=== PATIENT | female | born 1970 | race Caucasian/White ===

== ENCOUNTER 2020-12-21 16:38 | Emergency (ER) | payer MEDICAID ==
[2020-12-21] MEDS ORDERED: Sodium Chloride 0.9% 10 ML Syringe FLUSH PRN (18:09)
[2020-12-21] MEDS ORDERED: Ondansetron 4 MG/2 ML SDV IVPUSH ONE (18:09)
[2020-12-21] MEDS ORDERED: HYDROmorphone 0.5 MG/0.5 ML Syringe IVPUSH ONE (18:09)
[2020-12-21] MEDS ORDERED: Sodium Chloride 0.9% 1,000 ML IV ONE ×2 (18:09→19:42)
--- NOTE | 2020-12-21 18:15 | EDM.PDOC ---
ED HPI GENERAL MEDICAL PROBLEM - General Chief Complaint: General Stated Complaint: COVID SYMPTOMS Time Seen by Provider: 12/21/20 17:55 Source of Information: Reports: Patient History Limitations: Reports: No Limitations - History of Present Illness INITIAL COMMENTS - FREE TEXT/NARRATIVE: Aury is a 50-year-old female presenting to the ED with a 5-day history of fever, chills, headache, body aches, nausea, vomiting, diarrhea, shortness of breath and cough. Patient was exposed to multiple family members who have Covid or just recovering from Covid. Her daughter had Covid 2 weeks ago and just recovered. Her son has Covid now. Patient has not undergone any vaccination at this time. Patient is high risk because of hypertension, morbid obesity, and diabetes. She is already status post left BKA due to her complications related to diabetes. Not been able to eat or drink much in the last 5 days. She finally comes in because she is not able to tolerate the pain anymore. She is unsure of what her blood sugars are because she has not been checking them because she has not been eating. - Related Data Allergies Allergy/AdvReac Type Severity Reaction Status Date / Time No Known Allergies Allergy Verified 12/21/20 18:59 ED ROS GENERAL - Review of Systems Review Of Systems: See Below Constitutional: Reports: Fever, Chills, Weakness, Decreased Appetite Respiratory: Reports: Shortness of Breath, Cough Cardiovascular: Reports: Chest Pain Endocrine: Reports: Fatigue GI/Abdominal: Reports: Abdominal Pain, Diarrhea, Nausea, Vomiting : Reports: No Symptoms Musculoskeletal: Reports: Muscle Pain Skin: Reports: No Symptoms Neurological: Reports: Headache Psychiatric: Reports: Anxiety Hematologic/Lymphatic: Reports: No Symptoms Immunologic: Reports: No Symptoms ED EXAM, GENERAL - Physical Exam Exam: See Below Exam Limited By: No Limitations General Appearance: Alert, Moderate Distress Eye Exam: Bilateral Eye: EOMI, PERRL Throat/Mouth: Normal Voice, No Airway Compromise, Other (Very dry mucous membranes) Head: Atraumatic, Normocephalic Neck: Normal Inspection, Supple. No: Lymphadenopathy (R), Lymphadenopathy (L) Respiratory/Chest: No Respiratory Distress, Lungs Clear, Normal Breath Sounds Cardiovascular: Normal Peripheral Pulses, Regular Rate, Rhythm, No Murmur Peripheral Pulses: 2+: Radial (L), Radial (R), Posterior Tibial (R) GI/Abdominal: Normal Bowel Sounds, Soft, Tender (Diffusely tender), Abnormal Bowel Sounds (Diminished bowel sounds). No: Guarding, Rebound Back Exam: Normal Inspection Extremities: Other (Left BKA) Neurological: Alert, Oriented, Normal Cognition, No Motor/Sensory Deficits Psychiatric: Normal Affect, Normal Mood Skin Exam: Warm, Dry, Pallor Lymphatic: No Adenopathy Course - Vital Signs Last Recorded V/S: Last Vital Signs Temp 36.8 C 12/21/20 19:10 Pulse 90 12/21/20 19:10 Resp 18 12/21/20 19:10 BP 103/51 L 12/21/20 19:10 Pulse Ox 97 12/21/20 19:10 - Orders/Labs/Meds Orders: Active Orders 24 hr Category Date Time Status Chest 1V Frontal [CR] Stat Exams 12/21/20 18:13 Taken CULTURE BLOOD [BC] Urgent Lab 12/21/20 19:36 Ordered CULTURE BLOOD [BC] Urgent Lab 12/21/20 19:36 Ordered UA W/MICROSCOPIC [URIN] Stat Lab 12/21/20 18:09 Ordered Levofloxacin/Dextrose 5%-Water [Levaquin in D5W 750 MG/ Med 12/21/20 19:36 Active 150 ML] 750 mg Premix Bag 1 bag IV ONETIME Sodium Chloride 0.9% [Saline Flush] Med 12/21/20 18:09 Active 10 ml FLUSH ASDIRECTED PRN Vancomycin 1.5 gm Med 12/21/20 19:36 Active Sodium Chloride 0.9% [Normal Saline] 250 ml IV ONETIME dexAMETHasone [Decadron] Med 12/21/20 19:38 Once 6 mg IVPUSH ONETIME ONE Blood Culture x2 Reflex Set [OM.PC] Urgent Oth 12/21/20 19:36 Ordered Saline Lock Insert [OM.PC] Routine Oth 12/21/20 18:09 Ordered Medication Orders Dexamethasone (Dexamethasone 4 Mg/Ml Sdv) 6 mg IVPUSH ONETIME ONE Stop: 12/21/20 19:39 Levofloxacin/Dextrose 750 mg/ (Premix) 150 mls @ 100 mls/hr IV ONETIME ONE Stop: 12/21/20 21:05 Vancomycin HCl 1.5 gm/ Sodium (Chloride) 250 mls @ 150 mls/hr IV ONETIME ONE Stop: 04/10/21 21:15 Sodium Chloride (Sodium Chloride 0.9% 10 Ml Syringe) 10 ml FLUSH ASDIRECTED PRN PRN Reason: Keep Vein Open Last Admin: 12/21/20 18:26 Dose: 10 ml Documented by: BERRY Labs: Laboratory Tests 12/21/20 12/21/20 12/21/20 Range/Units 17:56 18:09 18:25 WBC 3.9 L (4.5-11.0) K/uL RBC 4.42 (3.30-5.50) M/uL Hgb 13.0 (12.0-15.0) g/dL Hct 37.8 (36.0-48.0) % MCV 86 (80-98) fL MCH 29 (27-31) pg MCHC 34 (32-36) % Plt Count 143 L (150-400) K/uL Neut % (Auto) 78 H (36-66) % Lymph % (Auto) 17 L (24-44) % Hyde % (Auto) 5 (2-6) % Eos % (Auto) 0 L (2-4) % Baso % (Auto) 1 (0-1) % D-Dimer, Quantitative (0.0-500.0) ng/mL ABG Hemoglobin 13.4 (12.0-16.0) g/dL ABG Oxyhemoglobin 49.5 % ABG Carboxyhemoglobin 4.5 H (0.0-1.6) % ABG Methemoglobin 0.7 % VBG pH 7.437 (7.350-7.450) VBG pCO2 34.3 mm/Hg VBG pO2 27.1 mm/Hg VBG HCO3 22.8 mmol/L VBG Total CO2 20.3 mmol/L VBG O2 Saturation 52.2 VBG O2 Content 9.3 %vol VBG Base Excess -0.4 mm/L O2 Delivery Device Room air Sodium (140-148) mmol/L Potassium (3.6-5.2) mmol/L Chloride (100-108) mmol/L Carbon Dioxide (21-32) mmol/L Anion Gap (5.0-14.0) mmol/L BUN (7-18) mg/dL Creatinine (0.6-1.0) mg/dL Est Cr Clr Drug Dosing mL/min Estimated GFR (MDRD) (>60) Glucose (74-106) mg/dL Lactic Acid (0.4-2.0) mmol/L Calcium (8.5-10.1) mg/dL Total Bilirubin (0.2-1.0) mg/dL AST (15-37) U/L ALT (12-78) U/L Alkaline Phosphatase (46-116) U/L C-Reactive Protein (0.0-0.3) mg/dL Total Protein (6.4-8.2) g/dL Albumin (3.4-5.0) g/dL Globulin (2.3-3.5) g/dL Albumin/Globulin Ratio (1.2-2.2) Procalcitonin ng/mL Ketones (NEGATIVE) Influenza Type A RNA Negative (NEGATIVE) RSV RNA (INAAT) Negative (NEGATIVE) Influenza Type B RNA Negative (NEGATIVE) SARS-CoV-2 RNA (KRAIG) Positive H (NEGATIVE) 12/21/20 12/21/20 12/21/20 Range/Units 18:25 18:25 18:25 WBC (4.5-11.0) K/uL RBC (3.30-5.50) M/uL Hgb (12.0-15.0) g/dL Hct (36.0-48.0) % MCV (80-98) fL MCH (27-31) pg MCHC (32-36) % Plt Count (150-400) K/uL Neut % (Auto) (36-66) % Lymph % (Auto) (24-44) % Hyde % (Auto) (2-6) % Eos % (Auto) (2-4) % Baso % (Auto) (0-1) % D-Dimer, Quantitative 2301.23 H (0.0-500.0) ng/mL ABG Hemoglobin (12.0-16.0) g/dL ABG Oxyhemoglobin % ABG Carboxyhemoglobin (0.0-1.6) % ABG Methemoglobin % VBG pH (7.350-7.450) VBG pCO2 mm/Hg VBG pO2 mm/Hg VBG HCO3 mmol/L VBG Total CO2 mmol/L VBG O2 Saturation VBG O2 Content %vol VBG Base Excess mm/L O2 Delivery Device Sodium 130 L (140-148) mmol/L Potassium 4.2 (3.6-5.2) mmol/L Chloride 93 L (100-108) mmol/L Carbon Dioxide 23 (21-32) mmol/L Anion Gap 18.2 H (5.0-14.0) mmol/L BUN 27 H (7-18) mg/dL Creatinine 1.5 H (0.6-1.0) mg/dL Est Cr Clr Drug Dosing 43.63 mL/min Estimated GFR (MDRD) 37 L (>60) Glucose 335 H (74-106) mg/dL Lactic Acid 1.6 (0.4-2.0) mmol/L Calcium 8.4 L (8.5-10.1) mg/dL Total Bilirubin 0.4 (0.2-1.0) mg/dL AST 28 (15-37) U/L ALT 20 (12-78) U/L Alkaline Phosphatase 105 (46-116) U/L C-Reactive Protein 17.48 H (0.0-0.3) mg/dL Total Protein 6.8 (6.4-8.2) g/dL Albumin 2.2 L (3.4-5.0) g/dL Globulin 4.6 H (2.3-3.5) g/dL Albumin/Globulin Ratio 0.5 L (1.2-2.2) Procalcitonin ng/mL Ketones (NEGATIVE) Influenza Type A RNA (NEGATIVE) RSV RNA (INAAT) (NEGATIVE) Influenza Type B RNA (NEGATIVE) SARS-CoV-2 RNA (KRAIG) (NEGATIVE) 12/21/20 12/21/20 Range/Units 18:25 18:25 WBC (4.5-11.0) K/uL RBC (3.30-5.50) M/uL Hgb (12.0-15.0) g/dL Hct (36.0-48.0) % MCV (80-98) fL MCH (27-31) pg MCHC (32-36) % Plt Count (150-400) K/uL Neut % (Auto) (36-66) % Lymph % (Auto) (24-44) % Hyde % (Auto) (2-6) % Eos % (Auto) (2-4) % Baso % (Auto) (0-1) % D-Dimer, Quantitative (0.0-500.0) ng/mL ABG Hemoglobin (12.0-16.0) g/dL ABG Oxyhemoglobin % ABG Carboxyhemoglobin (0.0-1.6) % ABG Methemoglobin % VBG pH (7.350-7.450) VBG pCO2 mm/Hg VBG pO2 mm/Hg VBG HCO3 mmol/L VBG Total CO2 mmol/L VBG O2 Saturation VBG O2 Content %vol VBG Base Excess mm/L O2 Delivery Device Sodium (140-148) mmol/L Potassium (3.6-5.2) mmol/L Chloride (100-108) mmol/L Carbon Dioxide (21-32) mmol/L Anion Gap (5.0-14.0) mmol/L BUN (7-18) mg/dL Creatinine (0.6-1.0) mg/dL Est Cr Clr Drug Dosing mL/min Estimated GFR (MDRD) (>60) Glucose (74-106) mg/dL Lactic Acid (0.4-2.0) mmol/L Calcium (8.5-10.1) mg/dL Total Bilirubin (0.2-1.0) mg/dL AST (15-37) U/L ALT (12-78) U/L Alkaline Phosphatase (46-116) U/L C-Reactive Protein (0.0-0.3) mg/dL Total Protein (6.4-8.2) g/dL Albumin (3.4-5.0) g/dL Globulin (2.3-3.5) g/dL Albumin/Globulin Ratio (1.2-2.2) Procalcitonin 0.18 ng/mL Ketones Negative (NEGATIVE) Influenza Type A RNA (NEGATIVE) RSV RNA (INAAT) (NEGATIVE) Influenza Type B RNA (NEGATIVE) SARS-CoV-2 RNA (KRAIG) (NEGATIVE) Meds: Medications Generic Name Dose Route Start Last Admin Trade Name Freq PRN Reason Stop Dose Admin Dexamethasone 6 mg 12/21/20 19:38 Dexamethasone 4 Mg/Ml Sdv IVPUSH 12/21/20 19:39 ONETIME ONE Levofloxacin/Dextrose 750 mg/ 150 mls @ 100 mls/hr 12/21/20 19:36 Premix IV 12/21/20 21:05 ONETIME ONE Vancomycin HCl 1.5 gm/ Sodium 250 mls @ 150 mls/hr 12/21/20 19:36 Chloride IV 12/21/20 21:15 ONETIME ONE Sodium Chloride 10 ml 12/21/20 18:09 12/21/20 18:26 Sodium Chloride 0.9% 10 Ml Syringe FLUSH 10 ml ASDIRECTED PRN Administration Keep Vein Open Discontinued Medications Generic Name Dose Route Start Last Admin Trade Name Millerq PRN Reason Stop Dose Admin Hydromorphone HCl 0.5 mg 12/21/20 18:09 12/21/20 18:25 Hydromorphone 0.5 Mg/0.5 Ml Syringe IVPUSH 12/21/20 18:10 0.5 mg ONETIME ONE Administration Sodium Chloride 1,000 mls @ 999 mls/hr 12/21/20 18:09 12/21/20 18:26 Normal Saline IV 12/21/20 19:09 999 mls/hr .BOLUS ONE Administration Ondansetron HCl 4 mg 12/21/20 18:09 12/21/20 18:25 Ondansetron 4 Mg/2 Ml Sdv IVPUSH 12/21/20 18:10 4 mg ONETIME ONE Administration - Radiology Interpretation Free Text/Narrative:: I reviewed the one view portable chest x-ray showing fluffy infiltrates in the right upper lobe and more consolidated infiltrate in the left upper lobe. - Re-Assessments/Exams Free Text/Narrative Re-Assessment/Exam: 12/21/20 19:38 I reviewed the labs and x-rays on Aury. Her CBC is unremarkable. Her comprehensive metabolic panel significant for a creatinine of 1.5 and a glucose of 334. Her D-dimer is elevated at 1500. Her C-reactive protein is 17.8. Her procalcitonin is 0.18. She is SARS-CoV-2 positive. Her chest x-ray shows a fluffy white upper lobe infiltrate and a more consolidated left upper lobe infiltrate consistent with COVID-19 pneumonia. Blood cultures have been obtained and antibiotics to be initiated with vancomycin 1.5 g IV and Levaquin 7 and 50 mg IV. The patient's ketone status is negative so it is unlikely that she is in DKA. She is continue to be aggressively hydrated after receiving a liter of normal saline a second liter has been initiated at wide open status. I have arranged for the patient to be admitted for further care given her high risk mortality and morbidity associated with COVID-19 including diabetes, hypertension, hyperlipidemia, and obesity. Patient was also given dexamethasone 6 mg IV push. She would be a candidate for Bamlamivimab as we are only 4 to 5 days into her course. It was all discussed with the patient and her daughter who are in agreement with the plan. Departure - Departure Time of Disposition: 19:29 Disposition: Admitted As Inpatient 66 Clinical Impression: COVID-19, Pneumonia, Hyperglycemia Acute kidney failure Qualifiers: Acute renal failure type: unspecified Qualified Code(s): N17.9 - Acute kidney failure, unspecified - Discharge Information Referrals: PCP,None [Primary Care Provider] - Forms: ED Department Discharge Sepsis Event Note (ED) - Focused Exam Vital Signs: Vital Signs Temp Pulse Resp BP Pulse Ox 12/21/20 19:10 36.8 C 90 18 103/51 L 97 12/21/20 18:08 36.8 C 90 18 103/51 L 97 - My Orders Last 24 Hours: My Active Orders 12/21/20 18:09 UA W/MICROSCOPIC [URIN] Stat Sodium Chloride 0.9% [Saline Flush] 10 ml FLUSH ASDIRECTED PRN Saline Lock Insert [OM.PC] Routine 12/21/20 18:13 Chest 1V Frontal [CR] Stat 12/21/20 19:36 CULTURE BLOOD [BC] Urgent CULTURE BLOOD [BC] Urgent Levofloxacin/Dextrose 5%-Water [Levaquin in D5W 750 MG/150 ML] 750 mg Premix Bag 1 bag IV ONETIME Vancomycin 1.5 gm Sodium Chloride 0.9% [Normal Saline] 250 ml IV ONETIME Blood Culture x2 Reflex Set [OM.PC] Urgent 12/21/20 19:38 dexAMETHasone [Decadron] 6 mg IVPUSH ONETIME ONE - Assessment/Plan Last 24 Hours: My Active Orders 12/21/20 18:09 UA W/MICROSCOPIC [URIN] Stat Sodium Chloride 0.9% [Saline Flush] 10 ml FLUSH ASDIRECTED PRN Saline Lock Insert [OM.PC] Routine 12/21/20 18:13 Chest 1V Frontal [CR] Stat 12/21/20 19:36 CULTURE BLOOD [BC] Urgent CULTURE BLOOD [BC] Urgent Levofloxacin/Dextrose 5%-Water [Levaquin in D5W 750 MG/150 ML] 750 mg Premix Bag 1 bag IV ONETIME Vancomycin 1.5 gm Sodium Chloride 0.9% [Normal Saline] 250 ml IV ONETIME Blood Culture x2 Reflex Set [OM.PC] Urgent 12/21/20 19:38 dexAMETHasone [Decadron] 6 mg IVPUSH ONETIME ONE
[2020-12-21 19:19] LABS: CORONAVIRUS COVID-19 NAA POSITIVE (NEGATIVE)
[2020-12-21] MEDS ORDERED: Levofloxacin/Dextrose 5%-Water 750 MG in Premix Bag 1 BAG IV ONE (19:36)
[2020-12-21] MEDS ORDERED: Dexamethasone 4 MG/ML SDV IVPUSH ONE (19:38)
[2020-12-21] MEDS ORDERED: Vancomycin 1 GM SDV ONE (19:48)
[2020-12-21] MEDS ORDERED: Sodium Chloride 0.9% 0 ML ONE (19:51)
[2020-12-21] MEDS ORDERED: LORazepam 2 MG/ML SDV IVPUSH ONE (20:04)
--- NOTE | 2020-12-21 20:40 | EDM.PDOC ---
ED HPI GENERAL MEDICAL PROBLEM - General Chief Complaint: General Stated Complaint: COVID SYMPTOMS Time Seen by Provider: 12/21/20 17:55 Source of Information: Reports: Patient History Limitations: Reports: No Limitations - History of Present Illness INITIAL COMMENTS - FREE TEXT/NARRATIVE: Aury is a 50-year-old female presenting to the ED with a 5-day history of fever, chills, headache, body aches, nausea, vomiting, diarrhea, shortness of breath and cough. Patient was exposed to multiple family members who have Covid or just recovering from Covid. Her daughter had Covid 2 weeks ago and just recovered. Her son has Covid now. Patient has not undergone any vaccination at this time. Patient is high risk because of hypertension, morbid obesity, and diabetes. She is already status post left BKA due to her complications related to diabetes. Not been able to eat or drink much in the last 5 days. She finally comes in because she is not able to tolerate the pain anymore. She is unsure of what her blood sugars are because she has not been checking them because she has not been eating. - Related Data Allergies Allergy/AdvReac Type Severity Reaction Status Date / Time No Known Allergies Allergy Verified 12/21/20 18:59 Past Medical History Genitourinary History: Reports: Diabetic Nephropathy Musculoskeletal History: Reports: Other (See Below) Other Musculoskeletal History: left leg amputation Endocrine/Metabolic History: Reports: Diabetes, Type II - Past Surgical History Cardiovascular Surgical History: Reports: Coronary Artery Stent Social & Family History - Tobacco Use Tobacco Use Status *Q: Current Every Day Tobacco User Years of Tobacco use: 35 Packs/Tins Daily: 1 ED ROS GENERAL - Review of Systems Review Of Systems: See Below ED EXAM, GENERAL - Physical Exam Exam: See Below Free Text/Narrative:: Aury is a 50-year-old female presenting to the ED with a 5-day history of fever, chills, headache, body aches, nausea, vomiting, diarrhea, shortness of breath and cough. Patient was exposed to multiple family members who have Covid or just recovering from Covid. Her daughter had Covid 2 weeks ago and just recovered. Her son has Covid now. Patient has not undergone any vaccination at this time. Patient is high risk because of hypertension, morbid obesity, and diabetes. She is already status post left BKA due to her complications related to diabetes. Not been able to eat or drink much in the last 5 days. She finally comes in because she is not able to tolerate the pain anymore. She is unsure of what her blood sugars are because she has not been checking them because she has not been eating. Exam Limited By: No Limitations General Appearance: Alert, Moderate Distress Throat/Mouth: Normal Voice, No Airway Compromise, Other (Very dry mucous membranes) Head: Atraumatic, Normocephalic Neck: Normal Inspection, Supple. No: Lymphadenopathy (R), Lymphadenopathy (L) Respiratory/Chest: No Respiratory Distress, Lungs Clear, Normal Breath Sounds Cardiovascular: Normal Peripheral Pulses, Regular Rate, Rhythm, No Murmur Peripheral Pulses: 2+: Radial (L), Radial (R), Posterior Tibial (R) GI/Abdominal: Normal Bowel Sounds, Soft, Tender (Diffusely tender), Abnormal Bowel Sounds (Diminished bowel sounds). No: Guarding, Rebound Back Exam: Normal Inspection Extremities: Other (Left BKA) Neurological: Alert, Oriented, Normal Cognition, No Motor/Sensory Deficits Psychiatric: Normal Affect, Normal Mood Skin Exam: Warm, Dry, Pallor Lymphatic: No Adenopathy Course - Vital Signs Last Recorded V/S: Last Vital Signs Temp 98.3 F 12/21/20 19:10 Pulse 90 12/21/20 19:10 Resp 18 12/21/20 19:10 BP 103/51 L 12/21/20 19:10 Pulse Ox 97 12/21/20 19:10 - Orders/Labs/Meds Orders: Active Orders 24 hr Category Date Time Status Chest 1V Frontal [CR] Stat Exams 12/21/20 18:13 Taken CULTURE BLOOD [BC] Urgent Lab 12/21/20 19:45 Received CULTURE BLOOD [BC] Urgent Lab 12/21/20 19:55 Received UA W/MICROSCOPIC [URIN] Stat Lab 12/21/20 18:09 Ordered Levofloxacin/Dextrose 5%-Water [Levaquin in D5W 750 MG/ Med 12/21/20 19:36 Active 150 ML] 750 mg Premix Bag 1 bag IV ONETIME Sodium Chloride 0.9% [Normal Saline] 1,000 ml Med 12/21/20 19:42 Active IV .BOLUS Sodium Chloride 0.9% [Saline Flush] Med 12/21/20 18:09 Active 10 ml FLUSH ASDIRECTED PRN Vancomycin 1.5 gm Med 12/21/20 19:36 Active Sodium Chloride 0.9% [Normal Saline] 250 ml IV ONETIME Blood Culture x2 Reflex Set [OM.PC] Urgent Oth 12/21/20 19:36 Ordered Saline Lock Insert [OM.PC] Routine Oth 12/21/20 18:09 Ordered Medication Orders Levofloxacin/Dextrose 750 mg/ (Premix) 150 mls @ 100 mls/hr IV ONETIME ONE Stop: 12/21/20 21:05 Vancomycin HCl 1.5 gm/ Sodium (Chloride) 250 mls @ 150 mls/hr IV ONETIME ONE Stop: 12/21/20 21:15 Sodium Chloride (Normal Saline) 1,000 mls @ 999 mls/hr IV .BOLUS ONE Stop: 12/21/20 20:42 Last Admin: 12/21/20 20:04 Dose: 999 mls/hr Documented by: LEW Sodium Chloride (Sodium Chloride 0.9% 10 Ml Syringe) 10 ml FLUSH ASDIRECTED PRN PRN Reason: Keep Vein Open Last Admin: 12/21/20 18:26 Dose: 10 ml Documented by: BERRY Labs: Laboratory Tests 12/21/20 12/21/20 12/21/20 Range/Units 17:56 18:09 18:25 WBC 3.9 L (4.5-11.0) K/uL RBC 4.42 (3.30-5.50) M/uL Hgb 13.0 (12.0-15.0) g/dL Hct 37.8 (36.0-48.0) % MCV 86 (80-98) fL MCH 29 (27-31) pg MCHC 34 (32-36) % Plt Count 143 L (150-400) K/uL Neut % (Auto) 78 H (36-66) % Lymph % (Auto) 17 L (24-44) % [place] % (Auto) 5 (2-6) % Eos % (Auto) 0 L (2-4) % Baso % (Auto) 1 (0-1) % D-Dimer, Quantitative (0.0-500.0) ng/mL ABG Hemoglobin 13.4 (12.0-16.0) g/dL ABG Oxyhemoglobin 49.5 % ABG Carboxyhemoglobin 4.5 H (0.0-1.6) % ABG Methemoglobin 0.7 % VBG pH 7.437 (7.350-7.450) VBG pCO2 34.3 mm/Hg VBG pO2 27.1 mm/Hg VBG HCO3 22.8 mmol/L VBG Total CO2 20.3 mmol/L VBG O2 Saturation 52.2 VBG O2 Content 9.3 %vol VBG Base Excess -0.4 mm/L O2 Delivery Device Room air Sodium (140-148) mmol/L Potassium (3.6-5.2) mmol/L Chloride (100-108) mmol/L Carbon Dioxide (21-32) mmol/L Anion Gap (5.0-14.0) mmol/L BUN (7-18) mg/dL Creatinine (0.6-1.0) mg/dL Est Cr Clr Drug Dosing mL/min Estimated GFR (MDRD) (>60) Glucose (74-106) mg/dL Lactic Acid (0.4-2.0) mmol/L Calcium (8.5-10.1) mg/dL Total Bilirubin (0.2-1.0) mg/dL AST (15-37) U/L ALT (12-78) U/L Alkaline Phosphatase (46-116) U/L C-Reactive Protein (0.0-0.3) mg/dL Total Protein (6.4-8.2) g/dL Albumin (3.4-5.0) g/dL Globulin (2.3-3.5) g/dL Albumin/Globulin Ratio (1.2-2.2) Procalcitonin ng/mL Ketones (NEGATIVE) Influenza Type A RNA Negative (NEGATIVE) RSV RNA (INAAT) Negative (NEGATIVE) Influenza Type B RNA Negative (NEGATIVE) SARS-CoV-2 RNA (KRAIG) Positive H (NEGATIVE) 12/21/20 12/21/20 12/21/20 Range/Units 18:25 18:25 18:25 WBC (4.5-11.0) K/uL RBC (3.30-5.50) M/uL Hgb (12.0-15.0) g/dL Hct (36.0-48.0) % MCV (80-98) fL MCH (27-31) pg MCHC (32-36) % Plt Count (150-400) K/uL Neut % (Auto) (36-66) % Lymph % (Auto) (24-44) % [place] % (Auto) (2-6) % Eos % (Auto) (2-4) % Baso % (Auto) (0-1) % D-Dimer, Quantitative 2301.23 H (0.0-500.0) ng/mL ABG Hemoglobin (12.0-16.0) g/dL ABG Oxyhemoglobin % ABG Carboxyhemoglobin (0.0-1.6) % ABG Methemoglobin % VBG pH (7.350-7.450) VBG pCO2 mm/Hg VBG pO2 mm/Hg VBG HCO3 mmol/L VBG Total CO2 mmol/L VBG O2 Saturation VBG O2 Content %vol VBG Base Excess mm/L O2 Delivery Device Sodium 130 L (140-148) mmol/L Potassium 4.2 (3.6-5.2) mmol/L Chloride 93 L (100-108) mmol/L Carbon Dioxide 23 (21-32) mmol/L Anion Gap 18.2 H (5.0-14.0) mmol/L BUN 27 H (7-18) mg/dL Creatinine 1.5 H (0.6-1.0) mg/dL Est Cr Clr Drug Dosing 43.63 mL/min Estimated GFR (MDRD) 37 L (>60) Glucose 335 H (74-106) mg/dL Lactic Acid 1.6 (0.4-2.0) mmol/L Calcium 8.4 L (8.5-10.1) mg/dL Total Bilirubin 0.4 (0.2-1.0) mg/dL AST 28 (15-37) U/L ALT 20 (12-78) U/L Alkaline Phosphatase 105 (46-116) U/L C-Reactive Protein 17.48 H (0.0-0.3) mg/dL Total Protein 6.8 (6.4-8.2) g/dL Albumin 2.2 L (3.4-5.0) g/dL Globulin 4.6 H (2.3-3.5) g/dL Albumin/Globulin Ratio 0.5 L (1.2-2.2) Procalcitonin ng/mL Ketones (NEGATIVE) Influenza Type A RNA (NEGATIVE) RSV RNA (INAAT) (NEGATIVE) Influenza Type B RNA (NEGATIVE) SARS-CoV-2 RNA (KRAIG) (NEGATIVE) 12/21/20 12/21/20 Range/Units 18:25 18:25 WBC (4.5-11.0) K/uL RBC (3.30-5.50) M/uL Hgb (12.0-15.0) g/dL Hct (36.0-48.0) % MCV (80-98) fL MCH (27-31) pg MCHC (32-36) % Plt Count (150-400) K/uL Neut % (Auto) (36-66) % Lymph % (Auto) (24-44) % [place] % (Auto) (2-6) % Eos % (Auto) (2-4) % Baso % (Auto) (0-1) % D-Dimer, Quantitative (0.0-500.0) ng/mL ABG Hemoglobin (12.0-16.0) g/dL ABG Oxyhemoglobin % ABG Carboxyhemoglobin (0.0-1.6) % ABG Methemoglobin % VBG pH (7.350-7.450) VBG pCO2 mm/Hg VBG pO2 mm/Hg VBG HCO3 mmol/L VBG Total CO2 mmol/L VBG O2 Saturation VBG O2 Content %vol VBG Base Excess mm/L O2 Delivery Device Sodium (140-148) mmol/L Potassium (3.6-5.2) mmol/L Chloride (100-108) mmol/L Carbon Dioxide (21-32) mmol/L Anion Gap (5.0-14.0) mmol/L BUN (7-18) mg/dL Creatinine (0.6-1.0) mg/dL Est Cr Clr Drug Dosing mL/min Estimated GFR (MDRD) (>60) Glucose (74-106) mg/dL Lactic Acid (0.4-2.0) mmol/L Calcium (8.5-10.1) mg/dL Total Bilirubin (0.2-1.0) mg/dL AST (15-37) U/L ALT (12-78) U/L Alkaline Phosphatase (46-116) U/L C-Reactive Protein (0.0-0.3) mg/dL Total Protein (6.4-8.2) g/dL Albumin (3.4-5.0) g/dL Globulin (2.3-3.5) g/dL Albumin/Globulin Ratio (1.2-2.2) Procalcitonin 0.18 ng/mL Ketones Negative (NEGATIVE) Influenza Type A RNA (NEGATIVE) RSV RNA (INAAT) (NEGATIVE) Influenza Type B RNA (NEGATIVE) SARS-CoV-2 RNA (KRAIG) (NEGATIVE) Meds: Medications Generic Name Dose Route Start Last Admin Trade Name Jael PRN Reason Stop Dose Admin Levofloxacin/Dextrose 750 mg/ 150 mls @ 100 mls/hr 12/21/20 19:36 Premix IV 12/21/20 21:05 ONETIME ONE Vancomycin HCl 1.5 gm/ Sodium 250 mls @ 150 mls/hr 12/21/20 19:36 Chloride IV 12/21/20 21:15 ONETIME ONE Sodium Chloride 1,000 mls @ 999 mls/hr 12/21/20 19:42 12/21/20 20:04 Normal Saline IV 12/21/20 20:42 999 mls/hr .BOLUS ONE Administration Sodium Chloride 10 ml 12/21/20 18:09 12/21/20 18:26 Sodium Chloride 0.9% 10 Ml Syringe FLUSH 10 ml ASDIRECTED PRN Administration Keep Vein Open Discontinued Medications Generic Name Dose Route Start Last Admin Trade Name Jael PRN Reason Stop Dose Admin Dexamethasone 6 mg 12/21/20 19:38 Dexamethasone 4 Mg/Ml Sdv IVPUSH 12/21/20 19:39 ONETIME ONE Hydromorphone HCl 0.5 mg 12/21/20 18:09 12/21/20 18:25 Hydromorphone 0.5 Mg/0.5 Ml Syringe IVPUSH 12/21/20 18:10 0.5 mg ONETIME ONE Administration Sodium Chloride 1,000 mls @ 999 mls/hr 12/21/20 18:09 12/21/20 18:26 Normal Saline IV 12/21/20 19:09 999 mls/hr .BOLUS ONE Administration Sodium Chloride Confirm 12/21/20 19:51 Normal Saline Administered 12/21/20 19:52 Dose 250 mls @ as directed .ROUTE .STK-MED ONE Lorazepam 1 mg 12/21/20 20:04 12/21/20 20:14 Lorazepam 2 Mg/Ml Sdv IVPUSH 12/21/20 20:05 1 mg ONETIME ONE Administration Ondansetron HCl 4 mg 12/21/20 18:09 12/21/20 18:25 Ondansetron 4 Mg/2 Ml Sdv IVPUSH 12/21/20 18:10 4 mg ONETIME ONE Administration Vancomycin HCl Confirm 12/21/20 19:48 Vancomycin 1 Gm Sdv Administered 12/21/20 19:49 Dose 2 gm .ROUTE .STK-MED ONE Departure - Departure Time of Disposition: 20:35 Disposition: Home, Self-Care 01 Clinical Impression: COVID-19, Pneumonia, Hyperglycemia Acute kidney failure Qualifiers: Acute renal failure type: unspecified Qualified Code(s): N17.9 - Acute kidney failure, unspecified - Discharge Information *PRESCRIPTION DRUG MONITORING PROGRAM REVIEWED*: Not Applicable Instructions: COVID-19 Vaccine Information, Hyperglycemia, [id number], COVID- 19 Frequently Asked Questions, Prone Position Therapy Referrals: PCP,None [Primary Care Provider] - Forms: ED Department Discharge Care Plan Goals: Covid 19 pneumonia Robitussin AC 10ml every 4 to 6 hours as needed for cough Zofran 4mg by mouth every 8 hours as needed for nausea Ativan 1 mg as directed for anxiety Tylenol as directed for pain or fever return to ER on Wednesday to start medication Return to ER for any increase shortness of breath, pain, fever, nausea, vomiting, or not improving. Sepsis Event Note (ED) - Evaluation Sepsis Screening Result: No Definite Risk - Focused Exam Vital Signs: Vital Signs Temp Pulse Resp BP Pulse Ox 12/21/20 19:10 98.3 F 90 18 103/51 L 97 12/21/20 18:08 98.3 F 90 18 103/51 L 97 - Problem List & Annotations (1) COVID-19 SNOMED Code(s): 594648944 Code(s): U07.1 - COVID-19 Status: Acute Priority: High Current Visit: Yes (2) Pneumonia SNOMED Code(s): 569806311 Code(s): J18.9 - PNEUMONIA, UNSPECIFIED ORGANISM Status: Acute Priority: High Current Visit: Yes (3) Hyperglycemia SNOMED Code(s): 32472873 Code(s): R73.9 - HYPERGLYCEMIA, UNSPECIFIED Status: Acute Priority: High Current Visit: Yes - Problem List Review Problem List Initiated/Reviewed/Updated: Yes - Assessment/Plan Plan: Covid 19 pneumonia Robitussin AC 10ml every 4 to 6 hours as needed for cough Zofran 4mg by mouth every 8 hours as needed for nausea Ativan 1 mg as directed for anxiety Tylenol as directed for pain or fever return to ER on Wednesday to start medication Return to ER for any increase shortness of breath, pain, fever, nausea, vomiting, or not improving. Diabetes high blood glucose -restart medication as directed by your Primary Care Provider -follow up in Clinic
--- NOTE | 2020-12-23 09:55 | CR ---
CHEST: Portable 12/21/2020 at 6:30 PM CLINICAL HISTORY:Cough, dyspnea,covid COMPARISON:None FINDINGS: Heart size and pulmonary vascularity are normal. There are bilateral perihilar pneumonic infiltrates. There are no effusions. Impression: Bilateral pneumonias
== END 2020-12-21 20:52 | disposition home or self-care (01) ==
LOC: JP.ED 16:38
DX: U07.1 COVID-19 (principal); J12.82 Pneumonia due to coronavirus disease 2019; N17.9 Acute kidney failure, unspecified; E11.21 Type 2 diabetes mellitus with diabetic nephropathy; I10 Essential (primary) hypertension; E66.01 Morbid (severe) obesity due to excess calories; Z72.0 Tobacco use
CPT/HCPCS: 0241U; 36415; 71045; 80053; 82009; 82803; 83605; 84145; 85025; 85379; 86140; 87040; 96374; 96375; 99285; J1170; J2060; J2405; J7030

== ENCOUNTER 2020-12-23 16:06 | Inpatient (IN) | payer MEDICAID ==
[2020-12-23] MEDS ORDERED: REMDESIVIR 200 MG in Sodium Chloride 0.9% 250 ML IV ONE (17:31)
[2020-12-23] MEDS ORDERED: Acetaminophen 325 MG Tab PO PRN (17:31)
[2020-12-23] MEDS ORDERED: Ketorolac 30 MG/ML SDV IVPUSH ONE (17:33)
[2020-12-23] MEDS ORDERED: LORazepam 2 MG/ML SDV IVPUSH ONE (17:34)
--- NOTE | 2020-12-23 17:35 | EDM.PDOC ---
ED HPI GENERAL MEDICAL PROBLEM - General Chief Complaint: Respiratory Problem Stated Complaint: COVID POSITIVE Time Seen by Provider: 12/23/20 17:31 Source of Information: Reports: Patient, Old Records, RN Notes Reviewed History Limitations: Reports: No Limitations - History of Present Illness INITIAL COMMENTS - FREE TEXT/NARRATIVE: 50-year-old female presents emergency department today with increasing shortness of breath. She has known history of Covid positive on 410 was evaluated at that time was not hypoxic was set up for monoclonal antibody therapy unfortunately when she presented for that she was found to be hypoxic - Related Data Allergies Allergy/AdvReac Type Severity Reaction Status Date / Time No Known Allergies Allergy Verified 12/23/20 17:17 Home Meds: Home Meds ALPRAZolam [Xanax] 0.25 mg PO TID PRN 12/22/20 [History] Clopidogrel [Plavix] 75 mg PO DAILY 12/22/20 [History] DULoxetine [Cymbalta] 90 mg PO DAILY 12/22/20 [History] Gabapentin [Neurontin] 900 mg PO TID 12/22/20 [History] Insulin Aspart [NovoLOG] 4 unit SUBCUT TID MDD 60 units 12/22/20 [History] Insulin Glarg,Human.Rec.Analog [Lantus Solostar] 42 unit SUBCUT DAILY 12/22/20 [History] Losartan [Cozaar] 50 mg PO DAILY 12/22/20 [History] Metoprolol Succinate 50 mg PO BEDTIME 12/22/20 [History] Metoprolol Succinate [Toprol Xl] 100 mg PO DAILY 12/22/20 [History] Nitroglycerin [Nitrostat] 0.4 mg SL Q5M PRN MDD 3 12/22/20 [History] Ondansetron [Zofran ODT] 4 mg PO Q8H PRN 12/22/20 [History] Pantoprazole [ProTONIX] 40 mg PO DAILY 12/22/20 [History] atorvaSTATin [Lipitor] 20 mg PO BEDTIME 12/22/20 [History] hydrOXYzine HCL [Atarax] 25 mg PO BEDTIME PRN 12/22/20 [History] metFORMIN [Glucophage] 500 mg PO BIDMEALS 12/22/20 [History] rOPINIRole [Requip] 2 mg PO BEDTIME 12/22/20 [History] traZODone 50 mg PO BEDTIME 12/22/20 [History] Past Medical History HEENT History: Reports: Impaired Vision Cardiovascular History: Reports: High Cholesterol, Hypertension Respiratory History: Reports: Sleep Apnea Other Respiratory History: cpap Gastrointestinal History: Reports: Chronic Diarrhea Genitourinary History: Reports: Diabetic Nephropathy 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: Musculoskeletal History: Reports: Other (See Below) Other Musculoskeletal History: left leg amputation Psychiatric History: Reports: Anxiety Endocrine/Metabolic History: Reports: Diabetes, Type II Hematologic History: Reports: Anticoagulation Therapy - Infectious Disease History Infectious Disease History: Reports: Chicken Pox, Novel Coronavirus - Past Surgical History Head Surgeries/Procedures: Reports: None HEENT Surgical History: Reports: None Cardiovascular Surgical History: Reports: Coronary Artery Stent Respiratory Surgical History: Reports: None GI Surgical History: Reports: Appendectomy, Cholecystectomy Female Surgical History: Reports: None, Oophorectomy Endocrine Surgical History: Reports: None Musculoskeletal Surgical History: Reports: None Dermatological Surgical History: Reports: None Social & Family History - Tobacco Use Tobacco Use Status *Q: Current Every Day Tobacco User Years of Tobacco use: 35 Packs/Tins Daily: 0.5 Second Hand Smoke Exposure: No - Caffeine Use Caffeine Use: Reports: Tea - Recreational Drug Use Recreational Drug Use: Yes Drug Use in Last 12 Months: Yes Recreational Drug Type: Reports: Marijuana/Hashish Recreational Drug Use Frequency: Daily ED ROS GENERAL - Review of Systems Review Of Systems: See Below Constitutional: Reports: No Symptoms Respiratory: Reports: Shortness of Breath Cardiovascular: Reports: Dyspnea on Exertion Musculoskeletal: Reports: Muscle Pain ED EXAM, GENERAL - Physical Exam Exam: See Below Exam Limited By: No Limitations General Appearance: Alert, Anxious Respiratory/Chest: No Respiratory Distress, Lungs Clear, Normal Breath Sounds, No Accessory Muscle Use, Chest Non-Tender Cardiovascular: Regular Rate, Rhythm, No Murmur GI/Abdominal: Soft, Non-Tender Course - Vital Signs Last Recorded V/S: Last Vital Signs Temp 97.4 F 12/23/20 17:20 Pulse 85 12/23/20 17:29 Resp 18 12/23/20 17:20 BP 129/66 12/23/20 17:20 Pulse Ox 91 L 12/23/20 17:29 - Orders/Labs/Meds Labs: Laboratory Tests 12/23/20 12/23/20 12/23/20 Range/Units 17:38 17:38 17:38 WBC 5.3 (4.5-11.0) K/uL RBC 4.24 (3.30-5.50) M/uL Hgb 12.3 (12.0-15.0) g/dL Hct 36.4 (36.0-48.0) % MCV 86 (80-98) fL MCH 29 (27-31) pg MCHC 34 (32-36) % Plt Count 266 (150-400) K/uL Neut % (Auto) 75 H (36-66) % Lymph % (Auto) 16 L (24-44) % [place] % (Auto) 9 H (2-6) % Eos % (Auto) 0 L (2-4) % Baso % (Auto) 1 (0-1) % Sodium 132 L (140-148) mmol/L Potassium 3.8 (3.6-5.2) mmol/L Chloride 95 L (100-108) mmol/L Carbon Dioxide 21 (21-32) mmol/L Anion Gap 19.8 H (5.0-14.0) mmol/L BUN 32 H (7-18) mg/dL Creatinine 1.7 H (0.6-1.0) mg/dL Est Cr Clr Drug Dosing 38.50 mL/min Estimated GFR (MDRD) 32 L (>60) Glucose 330 H (74-106) mg/dL Lactic Acid 4.2 H (0.4-2.0) mmol/L Calcium 8.7 (8.5-10.1) mg/dL Total Bilirubin (0.2-1.0) mg/dL Direct Bilirubin (0.0-0.2) mg/dL Indirect Bilirubin AST (15-37) U/L ALT (12-78) U/L Alkaline Phosphatase (46-116) U/L Lactate Dehydrogenase 527 H (82-234) U/L Troponin I (0.000-0.056) ng/mL C-Reactive Protein 11.25 H (0.0-0.3) mg/dL Total Protein (6.4-8.2) g/dL Albumin (3.4-5.0) g/dL Globulin (2.3-3.5) g/dL Albumin/Globulin Ratio (1.2-2.2) Procalcitonin ng/mL 12/23/20 12/23/20 12/23/20 Range/Units 17:38 17:38 17:38 WBC (4.5-11.0) K/uL RBC (3.30-5.50) M/uL Hgb (12.0-15.0) g/dL Hct (36.0-48.0) % MCV (80-98) fL MCH (27-31) pg MCHC (32-36) % Plt Count (150-400) K/uL Neut % (Auto) (36-66) % Lymph % (Auto) (24-44) % [place] % (Auto) (2-6) % Eos % (Auto) (2-4) % Baso % (Auto) (0-1) % Sodium (140-148) mmol/L Potassium (3.6-5.2) mmol/L Chloride (100-108) mmol/L Carbon Dioxide (21-32) mmol/L Anion Gap (5.0-14.0) mmol/L BUN (7-18) mg/dL Creatinine (0.6-1.0) mg/dL Est Cr Clr Drug Dosing mL/min Estimated GFR (MDRD) (>60) Glucose (74-106) mg/dL Lactic Acid (0.4-2.0) mmol/L Calcium (8.5-10.1) mg/dL Total Bilirubin 0.3 (0.2-1.0) mg/dL Direct Bilirubin 0.12 (0.0-0.2) mg/dL Indirect Bilirubin 0.18 AST 37 (15-37) U/L ALT 23 (12-78) U/L Alkaline Phosphatase 106 (46-116) U/L Lactate Dehydrogenase (82-234) U/L Troponin I < 0.017 (0.000-0.056) ng/mL C-Reactive Protein (0.0-0.3) mg/dL Total Protein 7.0 (6.4-8.2) g/dL Albumin 2.2 L (3.4-5.0) g/dL Globulin 4.8 H (2.3-3.5) g/dL Albumin/Globulin Ratio 0.5 L (1.2-2.2) Procalcitonin 0.07 ng/mL Meds: Medications Discontinued Medications Generic Name Dose Route Start Last Admin Trade Name Freq PRN Reason Stop Dose Admin Acetaminophen 650 mg 12/23/20 17:31 Acetaminophen 325 Mg Tab PO Q4H PRN Fever Greater Than 101 Dexamethasone 6 mg 12/23/20 17:45 12/23/20 17:53 Dexamethasone 4 Mg/Ml Sdv IVPUSH 01/01/21 09:01 6 mg DAILY SHANAE Administration Remdesivir 200 mg/ Sodium 250 mls @ 250 mls/hr 12/23/20 17:31 12/23/20 17:59 Chloride IV 12/23/20 17:32 250 mls/hr ONETIME ONE Administration Ketorolac Tromethamine 30 mg 12/23/20 17:33 12/23/20 17:51 Ketorolac 30 Mg/Ml Sdv IVPUSH 12/23/20 17:34 30 mg ONETIME ONE Administration Lorazepam 1 mg 12/23/20 17:34 12/23/20 17:49 Lorazepam 2 Mg/Ml Sdv IVPUSH 12/23/20 17:35 1 mg ONETIME ONE Administration Nicotine 14 mg 12/23/20 19:15 12/23/20 20:42 Nicotine 14 Mg/24 Hr Patch TRDERM Not Given DAILY SHANAE Nicotine Polacrilex 2 mg 12/23/20 19:06 Nicotine Polacrilex 2 Mg Gum CHEW Q1H PRN Other Departure - Departure Time of Disposition: 07:34 Disposition: Admitted As Inpatient 66 Condition: Fair Clinical Impression: COVID-19 - Discharge Information Sepsis Event Note (ED) - Evaluation Sepsis Screening Result: No Definite Risk - Assessment/Plan Plan: Assessment Acuity = acute Site and laterality = viral syndrome Etiology = COVID-19 Manifestations = hypoxic Location of injury = Home Lab values = pending Plan Dexamethasone remdesivir have been initiated in the emergency department no fluids provided, oxygen 2 L provided call discussed case with hospitalist on- call at [phone] kindly agreed to come evaluate the patient emergency department for admission This note was dictated using [employer] voice recognition software please call with any questions on syntax or grammar.
[2020-12-23] MEDS ORDERED: Dexamethasone 4 MG/ML SDV IVPUSH SCH (17:45)
--- NOTE | 2020-12-23 18:22 | PCM.HP.2 ---
H&P History of Present Illness - General Date of Service: 12/23/20 Admit Problem/Dx: Admission Diagnosis/Problem Admission Diagnosis/Problem Hypoxia Source of Information: Patient, Provider, RN Notes Reviewed History Limitations: Reports: No Limitations - History of Present Illness Initial Comments - Free Text/Narative: Ms. Garza is a 50-year-old woman who was admitted through the emergency department with weakness and hypoxia secondary to COVID-19 infection. She has not felt well over the past 6 days, few days ago she presented to the emergency department and tested positive for COVID-19. Over the last couple days has become more short of breath and also has had a cough that has been nonproductive. On evaluation today she is noted to have normal white blood cell count but was found to be hypoxic on room air. She does have known underlying type 2 diabetes mellitus. Chest x-ray has been obtained but because of issues with the PACS system I am unable to view it at this time. - Related Data Allergies/Adverse Reactions: Allergies Allergy/AdvReac Type Severity Reaction Status Date / Time No Known Allergies Allergy Verified 12/23/20 17:17 Home Medications: Home Meds ALPRAZolam [Xanax] 0.25 mg PO TID PRN 12/22/20 [History] Clopidogrel [Plavix] 75 mg PO DAILY 12/22/20 [History] DULoxetine [Cymbalta] 90 mg PO DAILY 12/22/20 [History] Gabapentin [Neurontin] 900 mg PO TID 12/22/20 [History] Insulin Aspart [NovoLOG] 4 unit SUBCUT TID MDD 60 units 12/22/20 [History] Insulin Glarg,Human.Rec.Analog [Lantus Solostar] 42 unit SUBCUT DAILY 12/22/20 [History] Losartan [Cozaar] 50 mg PO DAILY 12/22/20 [History] Metoprolol Succinate 50 mg PO BEDTIME 12/22/20 [History] Metoprolol Succinate [Toprol Xl] 100 mg PO DAILY 12/22/20 [History] Nitroglycerin [Nitrostat] 0.4 mg SL Q5M PRN MDD 3 12/22/20 [History] Ondansetron [Zofran ODT] 4 mg PO Q8H PRN 12/22/20 [History] Pantoprazole [ProTONIX] 40 mg PO DAILY 12/22/20 [History] atorvaSTATin [Lipitor] 20 mg PO BEDTIME 12/22/20 [History] hydrOXYzine HCL [Atarax] 25 mg PO BEDTIME PRN 12/22/20 [History] metFORMIN [Glucophage] 500 mg PO BIDMEALS 12/22/20 [History] rOPINIRole [Requip] 2 mg PO BEDTIME 12/22/20 [History] traZODone 50 mg PO BEDTIME 12/22/20 [History] Past Medical History HEENT History: Reports: Impaired Vision Cardiovascular History: Reports: High Cholesterol, Hypertension Respiratory History: Reports: Sleep Apnea Other Respiratory History: cpap Gastrointestinal History: Reports: Chronic Diarrhea Genitourinary History: Reports: Diabetic Nephropathy SAFETY ADVISOR History: Reports: Musculoskeletal History: Reports: Other (See Below) Other Musculoskeletal History: left leg amputation Psychiatric History: Reports: Anxiety Endocrine/Metabolic History: Reports: Diabetes, Type II Hematologic History: Reports: Anticoagulation Therapy - Infectious Disease History Infectious Disease History: Reports: Chicken Pox, Novel Coronavirus - Past Surgical History Head Surgeries/Procedures: Reports: None HEENT Surgical History: Reports: None Cardiovascular Surgical History: Reports: Coronary Artery Stent Respiratory Surgical History: Reports: None GI Surgical History: Reports: Appendectomy, Cholecystectomy Female Surgical History: Reports: None, Oophorectomy Endocrine Surgical History: Reports: None Musculoskeletal Surgical History: Reports: None Dermatological Surgical History: Reports: None Social & Family History - Tobacco Use Tobacco Use Status *Q: Current Every Day Tobacco User Years of Tobacco use: 35 Packs/Tins Daily: 0.5 Second Hand Smoke Exposure: No - Caffeine Use Caffeine Use: Reports: Tea - Recreational Drug Use Recreational Drug Use: Yes Drug Use in Last 12 Months: Yes Recreational Drug Type: Reports: Marijuana/Hashish Recreational Drug Use Frequency: Daily H&P Review of Systems - Review of Systems: Review Of Systems: See Below General: Reports: Malaise, Weakness, Fatigue. Denies: Fever, Chills HEENT: Reports: No Symptoms Pulmonary: Reports: Shortness of Breath, Cough. Denies: Wheezing, Pleuritic Chest Pain, Sputum, Hemoptysis Cardiovascular: Reports: Dyspnea on Exertion. Denies: Chest Pain, Palpitations, Orthopnea, PND, Edema, Lightheadedness Gastrointestinal: Reports: No Symptoms Genitourinary: Reports: No Symptoms Musculoskeletal: Reports: No Symptoms Skin: Reports: No Symptoms Psychiatric: Reports: No Symptoms Neurological: Reports: No Symptoms Hematologic/Lymphatic: Reports: No Symptoms Immunologic: Reports: No Symptoms Exam - Exam Exam: See Below - Vital Signs Vital Signs: Last Vital Signs Temp 97.4 F 12/23/20 17:20 Pulse 85 12/23/20 17:29 Resp 18 12/23/20 17:20 BP 129/66 12/23/20 17:20 Pulse Ox 91 L 12/23/20 17:29 Weight: 190 lb - Exam Quality Assessment: Supplemental Oxygen, DVT Prophylaxis General: Alert, Oriented, Cooperative, Moderate Distress HEENT: Conjunctiva Clear, Hearing Intact, Mucosa Moist & [place], Normal Nasal Septum, Posterior Pharynx Clear, Pupils Equal Neck: Supple, Trachea Midline, +2 Carotid Pulse wo Bruit Lungs: Clear to Auscultation, Normal Respiratory Effort, Decreased Breath Sounds Cardiovascular: Regular Rate, Regular Rhythm, Normal S1, Normal S2. No: S ystolic Murmur, Diastolic Murmur GI/Abdominal Exam: Soft, Non-Tender, No Organomegaly, No Distention Back Exam: Normal Inspection, Full Range of Motion Extremities: Non-Tender, No Pedal Edema Skin: Warm, Dry, Intact Neurological: Cranial Nerves Intact, Strength Equal Bilateral, Normal Speech, Normal Tone, Sensation Intact. No: Focal Deficit Neuro Extensive - Mental Status: Alert, Oriented x3, Normal Mood/Affect, Normal Cognition, Memory Intact - Patient Data Lab Results Last 24 hrs: Laboratory Results - last 24 hr 12/23/20 12/23/20 12/23/20 Range/Units 17:38 17:38 17:38 WBC 5.3 (4.5-11.0) K/uL RBC 4.24 (3.30-5.50) M/uL Hgb 12.3 (12.0-15.0) g/dL Hct 36.4 (36.0-48.0) % MCV 86 (80-98) fL MCH 29 (27-31) pg MCHC 34 (32-36) % Plt Count 266 (150-400) K/uL Neut % (Auto) 75 H (36-66) % Lymph % (Auto) 16 L (24-44) % [place] % (Auto) 9 H (2-6) % Eos % (Auto) 0 L (2-4) % Baso % (Auto) 1 (0-1) % Sodium 132 L (140-148) mmol/L Potassium 3.8 (3.6-5.2) mmol/L Chloride 95 L (100-108) mmol/L Carbon Dioxide 21 (21-32) mmol/L Anion Gap 19.8 H (5.0-14.0) mmol/L BUN 32 H (7-18) mg/dL Creatinine 1.7 H (0.6-1.0) mg/dL Est Cr Clr Drug Dosing 38.50 mL/min Estimated GFR (MDRD) 32 L (>60) Glucose 330 H (74-106) mg/dL Lactic Acid 4.2 H (0.4-2.0) mmol/L Calcium 8.7 (8.5-10.1) mg/dL Total Bilirubin (0.2-1.0) mg/dL Direct Bilirubin (0.0-0.2) mg/dL Indirect Bilirubin AST (15-37) U/L ALT (12-78) U/L Alkaline Phosphatase (46-116) U/L Lactate Dehydrogenase 527 H (82-234) U/L Troponin I (0.000-0.056) ng/mL C-Reactive Protein 11.25 H (0.0-0.3) mg/dL Total Protein (6.4-8.2) g/dL Albumin (3.4-5.0) g/dL Globulin (2.3-3.5) g/dL Albumin/Globulin Ratio (1.2-2.2) Procalcitonin ng/mL 12/23/20 12/23/20 12/23/20 Range/Units 17:38 17:38 17:38 WBC (4.5-11.0) K/uL RBC (3.30-5.50) M/uL Hgb (12.0-15.0) g/dL Hct (36.0-48.0) % MCV (80-98) fL MCH (27-31) pg MCHC (32-36) % Plt Count (150-400) K/uL Neut % (Auto) (36-66) % Lymph % (Auto) (24-44) % [place] % (Auto) (2-6) % Eos % (Auto) (2-4) % Baso % (Auto) (0-1) % Sodium (140-148) mmol/L Potassium (3.6-5.2) mmol/L Chloride (100-108) mmol/L Carbon Dioxide (21-32) mmol/L Anion Gap (5.0-14.0) mmol/L BUN (7-18) mg/dL Creatinine (0.6-1.0) mg/dL Est Cr Clr Drug Dosing mL/min Estimated GFR (MDRD) (>60) Glucose (74-106) mg/dL Lactic Acid (0.4-2.0) mmol/L Calcium (8.5-10.1) mg/dL Total Bilirubin 0.3 (0.2-1.0) mg/dL Direct Bilirubin 0.12 (0.0-0.2) mg/dL Indirect Bilirubin 0.18 AST 37 (15-37) U/L ALT 23 (12-78) U/L Alkaline Phosphatase 106 (46-116) U/L Lactate Dehydrogenase (82-234) U/L Troponin I < 0.017 (0.000-0.056) ng/mL C-Reactive Protein (0.0-0.3) mg/dL Total Protein 7.0 (6.4-8.2) g/dL Albumin 2.2 L (3.4-5.0) g/dL Globulin 4.8 H (2.3-3.5) g/dL Albumin/Globulin Ratio 0.5 L (1.2-2.2) Procalcitonin 0.07 ng/mL Result Diagrams: 12/23/20 17:38 12/23/20 17:38 Sepsis Event Note - Evaluation Sepsis Screening Result: No Definite Risk - Focused Exam Vital Signs: Vital Signs Temp Pulse Resp BP Pulse Ox 12/23/20 17:29 85 91 L 12/23/20 17:20 97.4 F 87 18 129/66 90 L 12/23/20 17:19 97.4 F 87 18 129/66 90 L *Q Meaningful Use (ADM) - VTE Risk Assess *Q Each Risk Factor Represents 1 Point: Age 41 - 59 years, Obesity ( BMI > 25 kg/m2), Serious lung disease including pneumonia Total Score 1 Point Risk Factors: 3 Each Risk Factor Represents 2 Points: None Total Score 2 Point Risk Factors: 0 Each Risk Factor Represents 3 Points: None Total Score 3 Point Risk Factors: 0 Each Risk Factor Represents 5 Points: None Total Score 5 Point Risk Factors: 0 Venous Thromboembolism Risk Factor Score *Q: 3 Problem List Initiated/Reviewed/Updated: Yes Orders Last 24hrs: Active Orders 24 hr Category Date Time Status Patient Status Manage Transfer [TRANSFER] Routine ADT 12/23/20 18:12 Active Nurse Communication: Isolation [RC] ASDIRECTED Care 12/23/20 17:32 Active Chest 1V Frontal [CR] Stat Exams 12/23/20 17:32 Taken HEPATIC FUNCTION PANEL,HFP [CHEM] DAILY Lab 12/24/20 17:45 Ordered HEPATIC FUNCTION PANEL,HFP [CHEM] DAILY Lab 12/25/20 17:45 Ordered HEPATIC FUNCTION PANEL,HFP [CHEM] DAILY Lab 12/26/20 17:45 Ordered HEPATIC FUNCTION PANEL,HFP [CHEM] DAILY Lab 12/27/20 17:45 Ordered Acetaminophen [TylenoL] Med 12/23/20 17:31 Active 650 mg PO Q4H PRN dexAMETHasone [Decadron] Med 12/23/20 17:45 Active 6 mg IVPUSH DAILY Isolation [COMM] Stat Oth 12/23/20 17:31 Ordered Resuscitation Status Routine Resus Stat 12/23/20 18:16 Ordered Medication Orders Acetaminophen (Acetaminophen 325 Mg Tab) 650 mg PO Q4H PRN PRN Reason: Fever Greater Than 101 Dexamethasone (Dexamethasone 4 Mg/Ml Sdv) 6 mg IVPUSH DAILY SHANAE Stop: 01/01/21 09:01 Last Admin: 12/23/20 17:53 Dose: 6 mg Documented by: NENA Assessment/Plan Comment:: ASSESSMENT AND PLAN COVID-19 INFECTION WITH HYPOXIA-symptoms present for the past 6 days. Now she has become more short of breath over the last 48 hours. On evaluation in the emergency department was noted to be hypoxic on room air. -Limit IV fluids -Follow-up labs in a.m. -Decadron 6 mg IV every 24 hours -Remdesivir 200 mg IV given in the emergency department, then 100 mg IV daily for the next 4 days -Supplemental oxygen as needed TYPE 2 DIABETES MELLITUS -Hold Metformin -Continue outpatient medications other than Metformin -4 times daily glucometers -Sliding scale Humalog MAINTENANCE ISSUES -DVT prophylaxis; enoxaparin 40 mg subcu every 12 hours -GI prophylaxis; not indicated -Jordan catheter; not indicated -Nutrition; consistent carbohydrate diet -Nicotine dependence; nicotine patch and nicotine gum CODE STATUS-FULL CODE ADMISSION STATUS-patient will be admitted to inpatient status, expect at least a 2 night hospital stay for evaluation and management of problems as outlined storm curtis. At the time of this admission I do not reasonably expected evaluation and management of this problem will require more than a 96 hour hospital stay. DISPOSITION-anticipate discharge to home after the hospital stay. - Mortality Measure Prognosis:: Good
[2020-12-23] MEDS ORDERED: Nicotine Polacrilex 2 MG Gum CHEW PRN (19:06)
[2020-12-23] MEDS ORDERED: Nicotine 14 MG/24 Hr Patch TRDERM SCH (19:15)
--- NOTE | 2020-12-24 08:37 | PCM.DCSUM1 ---
Discharge Summary - Hospital Course Brief History: Ms. Garza is a 50-year-old woman who was admitted through the emergency department with hypoxia and patchy pulmonary infiltrates secondary to COVID-19. - Discharge Data Discharge Date: 12/23/20 Discharge Disposition: Against Medical Advice 07 Condition: Stable - Referral to Home Health Primary Care Physician: PCP None - Discharge Diagnosis/Problem(s) (1) Hypoxia SNOMED Code(s): 903651545 ICD Code: R09.02 - HYPOXEMIA Status: Acute (2) COVID-19 SNOMED Code(s): 263875658 ICD Code: U07.1 - COVID-19 Status: Acute Priority: High - Patient Summary/Data Hospital Course: Ms. Garza is a 50-year-old woman who was admitted through the emergency department with weakness and hypoxia secondary to COVID-19 infection. She has not felt well over the past 6 days, few days ago she presented to the emergency department and tested positive for COVID-19. Over the last couple days has become more short of breath and also has had a cough that has been nonproductive. On evaluation today she is noted to have normal white blood cell count but was found to be hypoxic on room air. She does have known underlying type 2 diabetes mellitus. Chest x-ray showed patchy bilateral pulmonary infiltrates consistent with COVID-19. She was started on therapy with remdesivir and IV Decadron while in the emergency department. She was admitted to the Covid unit and supplemental oxygen was used to maintain adequate oxygenation. Within a few hours of admission she decided not to continue the hospitalization and did leave AGAINST MEDICAL ADVICE. - Discharge Plan Home Medications: Home Meds ALPRAZolam [Xanax] 0.25 mg PO TID PRN 12/22/20 [History] Clopidogrel [Plavix] 75 mg PO DAILY 12/22/20 [History] DULoxetine [Cymbalta] 90 mg PO DAILY 12/22/20 [History] Gabapentin [Neurontin] 900 mg PO TID 12/22/20 [History] Insulin Aspart [NovoLOG] 4 unit SUBCUT TID MDD 60 units 12/22/20 [History] Insulin Glarg,Human.Rec.Analog [Lantus Solostar] 42 unit SUBCUT DAILY 12/22/20 [History] Losartan [Cozaar] 50 mg PO DAILY 12/22/20 [History] Metoprolol Succinate 50 mg PO BEDTIME 12/22/20 [History] Metoprolol Succinate [Toprol Xl] 100 mg PO DAILY 12/22/20 [History] Nitroglycerin [Nitrostat] 0.4 mg SL Q5M PRN MDD 3 12/22/20 [History] Ondansetron [Zofran ODT] 4 mg PO Q8H PRN 12/22/20 [History] Pantoprazole [ProTONIX] 40 mg PO DAILY 12/22/20 [History] atorvaSTATin [Lipitor] 20 mg PO BEDTIME 12/22/20 [History] hydrOXYzine HCL [Atarax] 25 mg PO BEDTIME PRN 12/22/20 [History] metFORMIN [Glucophage] 500 mg PO BIDMEALS 12/22/20 [History] rOPINIRole [Requip] 2 mg PO BEDTIME 12/22/20 [History] traZODone 50 mg PO BEDTIME 12/22/20 [History] Referrals: PCP,None [Primary Care Provider] - - Discharge Summary/Plan Comment DC Time >30 min.: No - Patient Data Vitals - Most Recent: Last Vital Signs Temp 97.4 F 12/23/20 17:20 Pulse 85 12/23/20 17:29 Resp 18 12/23/20 17:20 BP 129/66 12/23/20 17:20 Pulse Ox 91 L 12/23/20 17:29 Weight - Most Recent: 190 lb I&O - Last 24 hours: Intake & Output 12/23/20 12/24/20 12/24/20 22:59 06:59 14:59 Intake Total 200 Balance 200 Lab Results - Last 24 hrs: Laboratory Results - last 24 hr 12/23/20 12/23/20 12/23/20 Range/Units 17:38 17:38 17:38 WBC 5.3 (4.5-11.0) K/uL RBC 4.24 (3.30-5.50) M/uL Hgb 12.3 (12.0-15.0) g/dL Hct 36.4 (36.0-48.0) % MCV 86 (80-98) fL MCH 29 (27-31) pg MCHC 34 (32-36) % Plt Count 266 (150-400) K/uL Neut % (Auto) 75 H (36-66) % Lymph % (Auto) 16 L (24-44) % [place] % (Auto) 9 H (2-6) % Eos % (Auto) 0 L (2-4) % Baso % (Auto) 1 (0-1) % Sodium 132 L (140-148) mmol/L Potassium 3.8 (3.6-5.2) mmol/L Chloride 95 L (100-108) mmol/L Carbon Dioxide 21 (21-32) mmol/L Anion Gap 19.8 H (5.0-14.0) mmol/L BUN 32 H (7-18) mg/dL Creatinine 1.7 H (0.6-1.0) mg/dL Est Cr Clr Drug Dosing 38.50 mL/min Estimated GFR (MDRD) 32 L (>60) Glucose 330 H (74-106) mg/dL Lactic Acid 4.2 H (0.4-2.0) mmol/L Calcium 8.7 (8.5-10.1) mg/dL Total Bilirubin (0.2-1.0) mg/dL Direct Bilirubin (0.0-0.2) mg/dL Indirect Bilirubin AST (15-37) U/L ALT (12-78) U/L Alkaline Phosphatase (46-116) U/L Lactate Dehydrogenase 527 H (82-234) U/L Troponin I (0.000-0.056) ng/mL C-Reactive Protein 11.25 H (0.0-0.3) mg/dL Total Protein (6.4-8.2) g/dL Albumin (3.4-5.0) g/dL Globulin (2.3-3.5) g/dL Albumin/Globulin Ratio (1.2-2.2) Procalcitonin ng/mL 12/23/20 12/23/20 12/23/20 Range/Units 17:38 17:38 17:38 WBC (4.5-11.0) K/uL RBC (3.30-5.50) M/uL Hgb (12.0-15.0) g/dL Hct (36.0-48.0) % MCV (80-98) fL MCH (27-31) pg MCHC (32-36) % Plt Count (150-400) K/uL Neut % (Auto) (36-66) % Lymph % (Auto) (24-44) % [place] % (Auto) (2-6) % Eos % (Auto) (2-4) % Baso % (Auto) (0-1) % Sodium (140-148) mmol/L Potassium (3.6-5.2) mmol/L Chloride (100-108) mmol/L Carbon Dioxide (21-32) mmol/L Anion Gap (5.0-14.0) mmol/L BUN (7-18) mg/dL Creatinine (0.6-1.0) mg/dL Est Cr Clr Drug Dosing mL/min Estimated GFR (MDRD) (>60) Glucose (74-106) mg/dL Lactic Acid (0.4-2.0) mmol/L Calcium (8.5-10.1) mg/dL Total Bilirubin 0.3 (0.2-1.0) mg/dL Direct Bilirubin 0.12 (0.0-0.2) mg/dL Indirect Bilirubin 0.18 AST 37 (15-37) U/L ALT 23 (12-78) U/L Alkaline Phosphatase 106 (46-116) U/L Lactate Dehydrogenase (82-234) U/L Troponin I < 0.017 (0.000-0.056) ng/mL C-Reactive Protein (0.0-0.3) mg/dL Total Protein 7.0 (6.4-8.2) g/dL Albumin 2.2 L (3.4-5.0) g/dL Globulin 4.8 H (2.3-3.5) g/dL Albumin/Globulin Ratio 0.5 L (1.2-2.2) Procalcitonin 0.07 ng/mL Med Orders - Current: Current Medications Discontinued Medications Acetaminophen (Acetaminophen 325 Mg Tab) 650 mg PO Q4H PRN PRN Reason: Fever Greater Than 101 Dexamethasone (Dexamethasone 4 Mg/Ml Sdv) 6 mg IVPUSH DAILY SHANAE Stop: 01/01/21 09:01 Last Admin: 12/23/20 17:53 Dose: 6 mg Documented by: Remdesivir 200 mg/ Sodium (Chloride) 250 mls @ 250 mls/hr IV ONETIME ONE Stop: 12/23/20 17:32 Last Admin: 12/23/20 17:59 Dose: 250 mls/hr Documented by: Ketorolac Tromethamine (Ketorolac 30 Mg/Ml Sdv) 30 mg IVPUSH ONETIME ONE Stop: 12/23/20 17:34 Last Admin: 12/23/20 17:51 Dose: 30 mg Documented by: Lorazepam (Lorazepam 2 Mg/Ml Sdv) 1 mg IVPUSH ONETIME ONE Stop: 12/23/20 17:35 Last Admin: 12/23/20 17:49 Dose: 1 mg Documented by: Nicotine (Nicotine 14 Mg/24 Hr Patch) 14 mg TRDERM DAILY SHANAE Last Admin: 12/23/20 20:42 Dose: Not Given Documented by: Nicotine Polacrilex (Nicotine Polacrilex 2 Mg Gum) 2 mg CHEW Q1H PRN PRN Reason: Other - Exam General: Reports: Other (Patient left AMA)
--- NOTE | 2020-12-24 09:23 | CR ---
CHEST: Portable 12/23/2020 CLINICAL HISTORY:Respiratory failure COMPARISON:12/21/2020 FINDINGS: Diffuse bilateral predominantly perihilar pulmonary infiltrates have increased since prior study. No effusion is seen Impression: Increasing bilateral pneumonic infiltrates
== END 2020-12-23 21:15 | disposition left against medical advice (07) | DRG 177 ==
LOC: JP.ED 16:06 → JP.2SS 18:12
PROVIDERS: ADMIT Hospitalist; ATTEND Hospitalist
PROC: 8E0ZXY6 Isolation (ICD-10-PCS; principal; 2020-12-23)
PROC: XW033E5 Introduction of Remdesivir Anti-infective into Peripheral Vein, Percutaneous Approach, New Technology Group 5 (ICD-10-PCS; principal; 2020-12-23)
DX: U07.1 COVID-19 (principal); J12.82 Pneumonia due to coronavirus disease 2019; H54.7 Unspecified visual loss; E78.00 Pure hypercholesterolemia, unspecified; I10 Essential (primary) hypertension; G47.30 Sleep apnea, unspecified; K52.9 Noninfective gastroenteritis and colitis, unspecified; E11.21 Type 2 diabetes mellitus with diabetic nephropathy; F41.9 Anxiety disorder, unspecified; F17.210 Nicotine dependence, cigarettes, uncomplicated; Z89.612 Acquired absence of left leg above knee; Z95.5 Presence of coronary angioplasty implant and graft; Z90.49 Acquired absence of other specified parts of digestive tract; Z99.81 Dependence on supplemental oxygen; Z79.4 Long term (current) use of insulin; Z79.899 Other long term (current) drug therapy; Z79.01 Long term (current) use of anticoagulants
CPT/HCPCS: 36415; 71045; 71045-26; 80048; 80076; 83605; 83615; 84145; 84484; 85025; 86140; 96374; 96375; 99222; 99285-25; J1100; J1885; J2060; J7050